=== PATIENT | female | born 1990 | race Caucasian/White ===

== ENCOUNTER 2021-06-29 14:39 | Emergency (ER) | payer MEDICAID ==
[~2021-06-29] VITALS: Ht 160 cm; Wt 81.6 kg
[2021-06-29 15:05] VITALS: BP_SYST 107
[2021-06-29] MEDS ORDERED: DIPHENHYDRAMINE INJ 50 MG/ML VIAL IM ONE (16:30)
[2021-06-29] MEDS ORDERED: MORPHINE SULFATE 10 MG/ML VIAL IM ONE (16:30)
[2021-06-29] MEDS ORDERED: CYCL10TA24 PO (18:31)
[2021-06-29] MEDS ORDERED: IBUP-1969 PO (18:31)
[2021-06-29 18:41] VITALS: BP_SYST 117
== END 2021-06-29 18:41 | disposition home or self-care (01) ==
LOC: SED 14:39
DX: M54.50 Low back pain, unspecified (principal); Z88.0 Allergy status to penicillin; Z79.899 Other long term (current) drug therapy; W18.39XA Other fall on same level, initial encounter; Y93.89 Activity, other specified; Y92.89 Other specified places as the place of occurrence of the external cause; Y99.8 Other external cause status
CPT/HCPCS: 72131; 76376; 96372; 99284; J1200; J2270

== ENCOUNTER 2021-10-24 13:10 | Emergency (ER) | payer MEDICAID, SELFPAY ==
[~2021-10-24] VITALS: Ht 160 cm; Wt 78.5 kg
[~2021-10-24 13:10] MED LIST: CYCL10TA24 PO; IBUP-1969 PO
[2021-10-24 13:14] VITALS: BP_SYST 118
--- NOTE | 2021-10-24 13:20 | NUR ---
Patient to ER bed 07 to gown for evaluation. Side rails up.
--- NOTE | 2021-10-24 13:22 | NUR ---
Pt here from home re vaginal bleeding x 2. Pt is , reportedly 14 weeks, and has also had intermittent lower abdominal pain. Reporting no current pain. Awaiting MD rodríguez.
--- NOTE | 2021-10-24 13:27 | NUR ---
Dr Webb to bedside to assess patient
--- NOTE | 2021-10-24 13:35 | NUR ---
Pt taken ambulatory to ultrasound
--- NOTE | 2021-10-24 14:14 | NUR ---
Pt awaiting ultrasound results
[2021-10-24 15:05] LABS: BASOPHILS % (AUTO) 0.2 % (0.0-2.0); EOSINOPHILS # (AUTO) 0.1 K/uL (0.0-0.4); EOSINOPHILS % (AUTO) 0.9 % (0.0-4.0); HEMATOCRIT 34.9 % (36-48); HEMOGLOBIN 11.5 g/dL (12.0-16.0); LYMPHOCYTES # (AUTO) 1.3 K/uL (1.0-5.5); LYMPHOCYTES % (AUTO) 20.2 % (20.5-51.5); MEAN CORPUSCULAR HEMOGLOBIN 26 pg (27-31); MEAN CORPUSCULAR HGB CONC 33 % (32-36); MEAN CORPUSCULAR VOLUME 78 fL (79.0-98.0); MONOCYTES # (AUTO) 0.4 K/uL (0.0-1.0); MONOCYTES % (AUTO) 5.8 % (1.7-9.3); NEUTROPHILS # (AUTO) 4.8 K/uL (1.8-7.7); NEUTROPHILS % (AUTO) 72.9 % (40.0-70.0); PLATELET COUNT (AUTO) 208 K/uL (130-430); WHITE BLOOD COUNT (AUTO) 6.6 K/uL (4.8-10.8)
[2021-10-24 15:10] LABS: INR 0.9 (0.8-1.2); PROTHROMBIN TIME 9.6 SECS (9.5-12.5)
[2021-10-24 15:32] LABS: BILIRUBIN,URINE 1+ (NEGATIVE); BLOOD, URINE 3+ (NEGATIVE); CLARITY/URINE SL CLOUDY (CLEAR); COLOR,URINE YELLOW (YELLOW); GLUCOSE,URINE NEGATIVE (NEGATIVE); KETONES,URINE NEGATIVE (NEGATIVE); LEUKOCYTE ESTERASE ,URINE NEGATIVE (NEGATIVE); NITRITE, URINE NEGATIVE (NEGATIVE); PROTEIN URINE 2+ (NEGATIVE); UROBILINOGEN,URINE 0.2 (0.2-1.0)
[2021-10-24 16:04] LABS: BACTERIA,URINE MODERATE /HPF (None Seen); RBC,URINE >100 /HPF (0-3)
[2021-10-24] MEDS ORDERED: NITR-85 PO (16:15)
[2021-10-24 16:24] VITALS: BP_SYST 118
--- NOTE | 2021-10-24 16:25 | NUR ---
Patient given written and verbal discharge instructions and verbalizes understanding. ER MD discussed with patient the results and treatment provided. Patient in stable condition. ID arm band removed. Rx of Macrobid given. Patient educated on pain management and to follow up with PMD. Opportunity for questions provided and answered. Medication side effect fact sheet provided.
== END 2021-10-24 16:24 | disposition home or self-care (01) ==
LOC: SED 13:10
DX: O20.0 Threatened abortion (principal); O23.40 Unspecified infection of urinary tract in pregnancy, unspecified trimester; J45.909 Unspecified asthma, uncomplicated; Z88.0 Allergy status to penicillin; Z3A.12 12 weeks gestation of pregnancy
CPT/HCPCS: 36415; 76805-TC; 81000; 81002; 81025; 84702; 85025; 85610-TC; 85730-TC; 86900; 86901; 87086; 99284

== ENCOUNTER 2022-03-05 20:29 | Observation (INO) | payer MEDICAID ==
[~2022-03-05 20:29] MED LIST changes: +NITR-85 PO
== END 2022-03-05 22:50 | disposition home or self-care (01) ==
LOC: SPU 20:29
PROVIDERS: ADMIT Specialist; ATTEND Specialist
DX: O26.893 Other specified pregnancy related conditions, third trimester (principal); R10.31 Right lower quadrant pain; O34.63 Maternal care for abnormality of vagina, third trimester; N89.8 Other specified noninflammatory disorders of vagina; Z3A.33 33 weeks gestation of pregnancy; Z88.0 Allergy status to penicillin
CPT/HCPCS: G0378

== ENCOUNTER 2022-11-10 11:28 | Emergency (ER) | payer MEDICAID ==
[~2022-11-10] VITALS: Ht 160 cm; Wt 72.6 kg
[2022-11-10 11:35] VITALS: BP_SYST 117
--- NOTE | 2022-11-10 11:40 | NUR ---
PT BIB LACF 32 C/O NONPROVOKED. PT REPORTS PAIN BEGAN AT APPROXIMATELY 0900. PT DENIES SOB. LACF GAVE 324MG ASA AND NTG SPRAY X 2. PT'S PAIN REDUCED FROM 1010 TO 8/10 AFTER MEDICATION.
--- NOTE | 2022-11-10 11:45 | NUR ---
ER at bedside examining patient.
--- NOTE | 2022-11-10 11:46 | NUR ---
EKG DONE. PT AWAITING FOR BED ASSIGNMENT.
[2022-11-10] MEDS ORDERED: KETOROLAC TROMETHAMINE 30 MG VIAL IM ONE (12:15)
[2022-11-10 12:45] LABS: BASOPHILS % (AUTO) 0.1 % (0.0-2.0); EOSINOPHILS % (AUTO) 0.3 % (0.0-4.0); HEMATOCRIT 37.8 % (36-48); HEMOGLOBIN 12.5 g/dL (12.0-16.0); LYMPHOCYTES # (AUTO) 0.6 K/uL (1.0-5.5); LYMPHOCYTES % (AUTO) 6.6 % (20.5-51.5); MEAN CORPUSCULAR HEMOGLOBIN 26 pg (27-31); MEAN CORPUSCULAR HGB CONC 33 % (32-36); MEAN CORPUSCULAR VOLUME 78 fL (79.0-98.0); MONOCYTES # (AUTO) 0.5 K/uL (0.0-1.0); MONOCYTES % (AUTO) 4.7 % (1.7-9.3); NEUTROPHILS # (AUTO) 8.5 K/uL (1.8-7.7); NEUTROPHILS % (AUTO) 88.3 % (40.0-70.0); PLATELET COUNT (AUTO) 193 K/uL (130-430); RED BLOOD CELL COUNT(AUTO) 4.86 MIL/uL (4.2-6.2); RED CELL DISTRIBUTION WIDTH 13.8 % (9.0-15.0); WHITE BLOOD COUNT (AUTO) 9.6 K/uL (4.8-10.8)
[2022-11-10 13:03] LABS: ANION GAP 12 (5-15); CALCIUM 8.4 mg/dL (8.4-11.0); CHLORIDE 101 mmol/L (98-107); CREATININE 0.73 mg/dL (0.55-1.30); GLUCOSE 90 mg/dL (70-99); UREA NITROGEN, BLOOD 11 mg/dL (8-21)
[2022-11-10 13:06] LABS: GFR AFRICAN AMERICAN 117 mL/min (>90)
[2022-11-10 13:09] LABS: ALANINE AMINOTRANSFERASE 38 U/L (12-78); ALBUMIN 4.3 g/dL (3.4-4.8); ASPARTATE AMINOTRANSFERASE 22 U/L (10-37); PHOSPHORUS 2.3 mg/dL (2.7-4.5); TOTAL BILIRUBIN 0.7 mg/dL (0.0-1.0)
[2022-11-10] MEDS ORDERED: NAPR-1172 PO (14:21)
[2022-11-10] MEDS ORDERED: IPRATROPIUM/ALBUTEROL SULFATE 3 ML AMPUL.NEB (DUONEB) INH ONE (14:30)
--- NOTE | 2022-11-10 16:00 | NUR ---
WILL ASSUME CARE AT THIS TIME.
--- NOTE | 2022-11-10 16:05 | NUR ---
PT WITH ANXIETY, BREATHING QUICKLY. GIVEN TORADOL ORDERED.
[2022-11-10] MEDS ORDERED: KETOROLAC TROMETHAMINE 30 MG VIAL ONE (16:14)
--- NOTE | 2022-11-10 16:17 | NUR ---
PT WITH HYPERVENTILATION, CARPAL SPASMS
[2022-11-10] MEDS ORDERED: LORazepam 1 MG TABLET PO ONE (16:30)
--- NOTE | 2022-11-10 17:02 | NUR ---
SPOUSE AT BEDSIDE FOR SUPPORT
--- NOTE | 2022-11-10 17:08 | NUR ---
SPOKE WITH SPOUSE AND PT STILL WITH CARPAL SPASMS. ENCOURAGED PT TO CONTROL HER BREATHING. SPOUSE GIVING SUPPORT
[2022-11-10] MEDS ORDERED: LORazepam 2 MG/ML VIAL IM ONE (17:15)
--- NOTE | 2022-11-10 17:21 | NUR ---
PT DENIES ANY CHANCE OF BEING , MEDICATED ORDERED.
--- NOTE | 2022-11-10 17:35 | NUR ---
TAKEN TO RADIOLOGY FOR TESTING VIA GLENNA
[2022-11-10 17:48] VITALS: BP_SYST 117
--- NOTE | 2022-11-10 17:48 | NUR ---
PT STATES SHE FEELS MUCH BETTER, HAND CRAMPS/SPASMS HAVE STOPPED. SPOUSE AT BEDSIDE.
--- NOTE | 2022-11-10 17:49 | NUR ---
Patient given written and verbal discharge instructions and verbalizes understanding. ER MD discussed with patient the results and treatment provided. Patient in stable condition. ID arm band removed. Rx of Naprosyn given. Patient educated on pain management and to follow up with PMD. Pain Scale 2/10. Opportunity for questions provided and answered. Medication side effect fact sheet provided.
== END 2022-11-10 17:49 | disposition home or self-care (01) ==
LOC: SED 11:28
DX: R07.9 Chest pain, unspecified (principal); F41.9 Anxiety disorder, unspecified; R20.2 Paresthesia of skin; J45.909 Unspecified asthma, uncomplicated; Z88.0 Allergy status to penicillin; Z79.899 Other long term (current) drug therapy
CPT/HCPCS: 99285; 70450; 71045; 80053; 82550; 83880; 83735; 84100; 85025; 85379; 84484; 36415; 93005; 76376; 94640; 96372; J1885; J2060